=== PATIENT | male | born 1930 | race Caucasian/White ===

== ENCOUNTER 2016-09-05 09:32 | Inpatient (IN) | payer MEDICARE ==
[2016-09-05] MEDS ORDERED: NS 0.9% 1000 ML* 2,000 ML IV ONE (10:12)
[2016-09-05 10:29] LABS: Hematocrit 40 % (42-52); Hemoglobin 13.1 g/dl (14.0-18.0); Mean Corpuscular HGB Conc 33 g/dl (31-36); Mean Corpuscular Hemoglobin 29 pg (27-31); Mean Corpuscular Volume 88 fL (80-94); Mean Platelet Volume 11 um3 (7.4-10.4); Red Blood Count 4.52 10^6/ul (4.0-5.4); Red Cell Distribution Width 14 % (10.5-15); White Blood Count 9.5 10^3/ul (3.5-10.8)
[2016-09-05 10:45] LABS: Albumin 3.7 g/dL (3.2-5.2); BUN/Creatinine Ratio 22.3 (8-20); Calcium 9.3 mg/dL (8.6-10.3); EGFR African American 62.5 (>60); EGFR Non-African American 48.6 (>60); Globulin 3.8 g/dL (2-4); Potassium 3.8 mmol/L (3.5-5.0); Total Protein 7.5 g/dL (6.4-8.9)
[2016-09-05 11:00] LABS: Troponin I 0.94 ng/mL (<0.04)
[2016-09-05 11:02] LABS: TSH (Thyroid Stimulating Horm) 2.12 mcIU/mL (0.34-5.60)
--- NOTE | 2016-09-05 11:10 | RAD ---
Indication: Fall, pain. Assess for hemorrhage/CVA. Comparison: March 23, 2015 Technique: Noncontrast CT vertex of skull through foramen magnum. Report: Moderately severe prominence of the cerebral sulci. Proportional enlargement of the ventricles. Patent basal cisterns. 3 cm region of encephalomalacia at the junction of the RIGHT parietal and occipital lobes without change is consistent with sequela of a previous infarct. Well-circumscribed 1 cm lacunar infarct involving the RIGHT basal ganglia including the RIGHT basal ganglia while new compared with the 2015 exam appears chronic. Smaller unchanged LEFT basal ganglia lacunar infarct. Decreased density in the periventricular and subcortical white matter while non-specific is most likely due to chronic microangiopathy. No romero matter white matter obscuration associated with mass effect evident. Negative for intra or extra-axial hemorrhage. Unremarkable orbital contents. 2.4 x 1.4 cm soft tissue density LEFT frontoparietal scalp lesion with resulting convexity of the skin with irregular contour new compared with the prior exam is most consistent with a scalp hematoma given history of falls. Negative for fracture or suspicious lesion of the calvarium or skull base. Clear visualized paranasal sinuses and mastoid air spaces. IMPRESSION: 1. No traumatic intracranial injury or other acute intracranial process evident. 2. LEFT scalp hematoma. 3. 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 Involutional change Stigmata of chronic small vessel ischemic disease.
--- NOTE | 2016-09-05 11:20 | RAD ---
Indication: Multiple falls Comparison: March 23, 2015 Technique: Sitting AP and lateral chest views. Report: Clear lungs and pleural spaces. Negative for pneumothorax. The heart, pulmonary vasculature, and mediastinal contours are unremarkable. Unremarkable osseous structures for age. IMPRESSION: No evidence for acute intrathoracic disease.
--- NOTE | 2016-09-05 11:46 | RAD ---
Indication: Lumbar sacral pain post fall. Comparison: January 22, 2015 CT. Technique: Noncontrast CT pelvis and lumbar sacral spine. Multiplanar reformation. Report: Mildly impacted fracture at the S3-S4 level of the sacrum. Negative for significant surrounding soft tissue hematoma. No additional fracture of the pelvis. Negative for pelvic joint diastases. 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 Negative for lumbar spine fracture or spondylolysis at any level. Normal vertebral alignment without spondylolisthesis at any level. Multilevel degenerative spondylosis and posterior element osteoarthritis. T12-L1: Unremarkable for age. L1-L2: Degenerative spondylosis and posterior element hypertrophic arthropathy results in mild alteration in the shape of the thecal sac and mild bilateral foraminal stenosis. L2-L3: Degenerative spondylosis and posterior element osteoarthritis results in mild alteration in the shape of the thecal sac and slight bilateral foraminal stenosis. L3-L4: Annular disc bulge and posterior element osteoarthritis results in mild alteration in the shape of the thecal sac and mild bilateral foraminal stenosis. L4-L5: Mild annular disc bulge and posterior element hypertrophic arthropathy results in mild alteration in the shape of the thecal sac and slight bilateral foraminal stenosis. L5-S1: Annular disc bulge results in mild impression on the ventral margin of the thecal sac. Degenerative spondylosis and facet joint osteoarthritis results in mild bilateral foraminal stenosis. Distended urinary bladder with diffuse mild wall thickening likely reflecting trabeculation. Symmetric seminal vesicles. Negative for lymphadenopathy, ascites, or suspicious finding of the visualized bowel loops. Small fat-containing umbilical hernia without inflammatory change. IMPRESSION: 1. Mildly impacted acute appearing fracture at the S3-S4 level. Negative for significant surrounding hematoma. 2. Negative for fracture of the lumbar spine. 3. Diffuse degenerative spondylosis and posterior element osteoarthritis as described.
[2016-09-05] MEDS ORDERED: Aspirin Low Dose CHEW TAB* 81 MG PO ONE (12:27)
--- NOTE | 2016-09-05 12:29 | ED ---
Reed Thao Matthew, scribed for Valente Stewart MD on 09/05/16 at 1003 . Adult Trauma - HPI Summary HPI Summary: A 85 y/o male presents to the ED after 3 falls in the past two days. The pain is rated 8/10 in severity. The patient states that he fell once yesterday and two times today. He states that his falls are a results of his loss of balance. Yesterday, the patient was doing dishes when he fell backwards onto his sacrum. This morning he fell while trying to use the restroom. Associated symptoms include head trauma, bilateral hip pain, ecchymosis, pedal edema, and back pain - only with ambulation. The patient denies LOC, decreased appetite, weakness, chest pain, SOB, headache, neck pain, and slurred speech. The patient's also c/ o of right knee and left elbow pain from dragging himself across the carpet. PMHx includes MT. Currently, the patient states that he's doing well.; however he has been occasionally seeing "stars" since falling. He takes aspirin daily. The patient has a Hx of prior falls. He's also had diarrhea a couple of weeks ago w/o vomiting, which has since resolved. The patient has a left sided mass on his forehead, which has been increasing in size per his hospice home care coordinator. - History of Current Complaint Chief Complaint: EDGeneral Stated Complaint: FALL,HEADLAC, HIP PAIN, Time Seen by Provider: 09/05/16 09:48 Hx Obtained From: Patient Mechanism of Injury: Fall Ambulatory at the Scene: No Loss of Consciousness: no loss of consciousness Onset/Duration: Started Hours Ago, Traumatic Onset of Pain: Immediate Onset Severity: Moderate Current Severity: Moderate Pain Intensity: 8 Pain Scale Used: 0-10 Numeric Location: Back - sacrum, Abdomen/Pelvis - bilateral hip pain Aggravating Factor(s): Movement, Weight Bearing, Ambulation Alleviating Factor(s): Nothing Associated Signs & Symptoms: Positive: Ecchymosis, Other: - pedal edema. Negative: SOB, Chest Pain, Cough, Abdominal Pain, Fever, Nausea/Vomiting, Loss of Consciousness, Numbness/Weakness, Painful Respirations - Additional Pertinent History Primary Care Physician: [id number] - Allergy/Home Medications Allergies/Adverse Reactions: Allergies Allergy/AdvReac Type Severity Reaction Status Date / Time No Known Allergies Allergy Verified 09/05/16 09:41 PMH/Surg Hx/FS Hx/Imm Hx Endocrine/Hematology History: Denies: Hx Diabetes Cardiovascular History: Reports: Hx Hypercholesterolemia, Hx Hypertension, Other Cardiovascular Problems/Disorders - Mitral valve insufficiency, corotid stenosis Denies: Hx Congestive Heart Failure, Hx Pacemaker/ICD Respiratory History: Denies: Hx Asthma History: Denies: Hx Dialysis, Hx Renal Disease Sensory History: Reports: Hx Contacts or Glasses Denies: Hx Hearing Aid Opthamlomology History: Reports: Hx Contacts or Glasses Psychiatric History: Denies: Hx Panic Disorder - Surgical History Surgery Procedure, Year, and Place: TONSILS CHILD Infectious Disease History: No Infectious Disease History: Denies: Traveled Outside the [place] in Last 30 Days - Family History Known Family History: Positive: Cardiac Disease Negative: Diabetes Family History: No FHx of CA - Social History Alcohol Use: None Substance Use Type: Reports: None Smoking Status (MU): Former Smoker Amount Used/How Often: daily Length of Time of Smoking/Using Tobacco: entire life Have You Smoked in the Last Year: Yes Review of Systems Constitutional: Negative Eyes: Negative ENT: Negative Negative: Sore Throat Cardiovascular: Negative Negative: Chest Pain Respiratory: Negative Negative: Shortness Of Breath, Cough Gastrointestinal: Negative Genitourinary: Negative Positive: Myalgia - bilateral hip, scarum Positive: Bruising - sacrum Neurological: Negative Negative: Headache, Weakness, Slurred Speech Psychological: Normal All Other Systems Reviewed And Are Negative: Yes Physical Exam - Summary Physical Exam Summary: The patient is well-nourished in no acute distress and in no acute pain. The patient has decreased skin turgor. HEENT: The head is normocephalic. The patient has swelling on the left side of his face along with a mass. The pupils are equal and reactive and EMOI. The conjunctivae are clear and without drainage. Nares are patent and without drainage. Mouth reveals dry mucous membranes and the throat is without erythema and exudate. The external ears are intact. The ear canals are patent and without drainage. The tympanic membranes are intact. Neck is supple with full range of motion and non-tender. There are no carotid bruits. There is no neck vein distension. No reproducible pain noted. Respiratory: Chest is non-tender. Lungs are clear to auscultation and breath sounds are symmetrical and equal. Cardiovascular: Hear is regular rate and rhythm. There is no murmur or rub auscultated. Pulses are symmetrical and equal. Abdomen: The abdomen is soft and non-tender. There are normal bowel sounds heard in all four quadrants and there is no organomegaly palpated. Musculoskeletal: The patient has right hip tenderness, pain over his sacrum and right pubis ischium. Extremities are non-tender with full range of motion. There is good capillary refill. There is no calf tenderness elicited. The patient has pitting edema of the LE. Neurological: Patient is alert and oriented to person, place and time. The patient has symmetrical motor strength in all four extremities. Cranial nerves are grossly intact. Deep tendon reflexes are symmetrical and equal in all four extremities. No facial droop noted. No motor weakness noted. Psychiatric: The patient has an appropriate affect and does not exhibit any anxiety or depression. Triage Information Reviewed: Yes Vital Signs On Initial Exam: Initial Vitals Temp Pulse Resp BP Pulse Ox 98.0 F 84 16 163/67 97 09/05/16 09:33 09/05/16 09:33 09/05/16 09:33 09/05/16 09:33 09/05/16 09:33 Vital Signs Reviewed: Yes Diagnostics - Vital Signs Vital Signs Temp Pulse Resp BP Pulse Ox 09/05/16 09:33 98.0 F 84 16 163/67 97 - Laboratory Lab Results: Lab Results 09/05/16 09/05/16 09/05/16 Range/Units 10:15 10:15 10:15 WBC 9.5 (3.5-10.8) 10^3/ul RBC 4.52 (4.0-5.4) 10^6/ul Hgb 13.1 L (14.0-18.0) g/dl Hct 40 L (42-52) % MCV 88 (80-94) fL MCH 29 (27-31) pg MCHC 33 (31-36) g/dl RDW 14 (10.5-15) % Plt Count 137 L (150-450) 10^3/ul MPV 11 H (7.4-10.4) um3 Neut % (Auto) 68.9 (38-83) % Lymph % (Auto) 20.0 L (25-47) % Meeker % (Auto) 7.6 (1-9) % Eos % (Auto) 1.9 (0-6) % Baso % (Auto) 1.6 (0-2) % Absolute Neuts (auto) 6.5 (1.5-7.7) 10^3/ul Absolute Lymphs (auto) 1.9 (1.0-4.8) 10^3/ul Absolute Monos (auto) 0.7 (0-0.8) 10^3/ul Absolute Eos (auto) 0.2 (0-0.6) 10^3/ul Absolute Basos (auto) 0.2 (0-0.2) 10^3/ul Absolute Nucleated RBC 0.01 10^3/ul Nucleated RBC % 0.1 INR (Anticoag Therapy) 1.06 (0.89-1.11) Sodium 134 (133-145) mmol/L Potassium 3.8 (3.5-5.0) mmol/L Chloride 102 (101-111) mmol/L Carbon Dioxide 23 (22-32) mmol/L Anion Gap 9 (2-11) mmol/L BUN 31 H (6-24) mg/dL Creatinine 1.39 H (0.67-1.17) mg/dL Est GFR ( Amer) 62.5 (>60) Est GFR (Non-Af Amer) 48.6 (>60) BUN/Creatinine Ratio 22.3 H (8-20) Glucose 112 H (70-100) mg/dL Lactic Acid (0.5-2.0) mmol/L Calcium 9.3 (8.6-10.3) mg/dL Magnesium 2.0 (1.9-2.7) mg/dL Total Bilirubin 2.00 H (0.2-1.0) mg/dL AST 29 (13-39) U/L ALT 11 (7-52) U/L Alkaline Phosphatase 71 (34-104) U/L Total Creatine Kinase 334 H (10-223) U/L Troponin I 0.94 H* (<0.04) ng/mL B-Natriuretic Peptide ( - 100) pg/mL Total Protein 7.5 (6.4-8.9) g/dL Albumin 3.7 (3.2-5.2) g/dL Globulin 3.8 (2-4) g/dL Albumin/Globulin Ratio 1.0 (1-3) TSH 2.12 (0.34-5.60) mcIU/mL 09/05/16 09/05/16 Range/Units 10:15 10:15 WBC (3.5-10.8) 10^3/ul RBC (4.0-5.4) 10^6/ul Hgb (14.0-18.0) g/dl Hct (42-52) % MCV (80-94) fL MCH (27-31) pg MCHC (31-36) g/dl RDW (10.5-15) % Plt Count (150-450) 10^3/ul MPV (7.4-10.4) um3 Neut % (Auto) (38-83) % Lymph % (Auto) (25-47) % Meeker % (Auto) (1-9) % Eos % (Auto) (0-6) % Baso % (Auto) (0-2) % Absolute Neuts (auto) (1.5-7.7) 10^3/ul Absolute Lymphs (auto) (1.0-4.8) 10^3/ul Absolute Monos (auto) (0-0.8) 10^3/ul Absolute Eos (auto) (0-0.6) 10^3/ul Absolute Basos (auto) (0-0.2) 10^3/ul Absolute Nucleated RBC 10^3/ul Nucleated RBC % INR (Anticoag Therapy) (0.89-1.11) Sodium (133-145) mmol/L Potassium (3.5-5.0) mmol/L Chloride (101-111) mmol/L Carbon Dioxide (22-32) mmol/L Anion Gap (2-11) mmol/L BUN (6-24) mg/dL Creatinine (0.67-1.17) mg/dL Est GFR ( Amer) (>60) Est GFR (Non-Af Amer) (>60) BUN/Creatinine Ratio (8-20) Glucose (70-100) mg/dL Lactic Acid 1.3 (0.5-2.0) mmol/L Calcium (8.6-10.3) mg/dL Magnesium (1.9-2.7) mg/dL Total Bilirubin (0.2-1.0) mg/dL AST (13-39) U/L ALT (7-52) U/L Alkaline Phosphatase (34-104) U/L Total Creatine Kinase (10-223) U/L Troponin I (<0.04) ng/mL B-Natriuretic Peptide 262 H ( - 100) pg/mL Total Protein (6.4-8.9) g/dL Albumin (3.2-5.2) g/dL Globulin (2-4) g/dL Albumin/Globulin Ratio (1-3) TSH (0.34-5.60) mcIU/mL Result Diagrams: 09/05/16 10:15 09/05/16 10:15 Lab Statement: Any lab studies that have been ordered have been reviewed, and results considered in the medical decision making process. - Radiology CXR Xray Interpretation: No Acute Changes - IMPRESSION: No evidence for acute intrathoracic disease. Radiology Interpretation Completed By: Radiologist - CT Brain CT CT Interpretation: No Acute Changes - IMPRESSION: 1. No traumatic intracranial injury or other acute intracranial process evident. 2. LEFT scalp hematoma. 3. 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 Involutional change Stigmata of chronic small vessel ischemic disease. CT Interpretation Completed By: Radiologist L-Spine CT CT Interpretation: Positive (See Comments) - IMPRESSION: 1. Mildly impacted acute appearing fracture at the S3-S4 level. Negative for significant surrounding hematoma. 2. Negative for fracture of the lumbar spine. 3. Diffuse degenerative spondylosis and posterior element osteoarthritis as described. CT Interpretation Completed By: Radiologist Pelvis CT CT Interpretation: Positive (See Comments) - IMPRESSION: 1. Mildly impacted acute appearing fracture at the S3-S4 level. Negative for significant surrounding hematoma. 2. Negative for fracture of the lumbar spine. 3. Diffuse degenerative spondylosis and posterior element osteoarthritis as described. CT Interpretation Completed By: Radiologist - EKG 09:44 Cardiac Rate: NL - 82 bpm EKG Rhythm: Sinus Rhythm EKG Interpretation: Old Inferior Wall Infarct; RBBB; No STEMI EKG Comparison: No Significant Change - 03/23/15 Re-Evaluation - Re-Evaluation First Eval Re-Evaluation Time: 11:24 Change: Unchanged Comment: Reviewed labs and imaging with the patient. Discussed the possibility of admission with the patient. Adult Trauma Course/Dx - Course Assessment/Plan: An 85 y/o male presents to the ED after 3 falls in the past two days. The falls have resulted from a loss of balance. Associated symptoms include head trauma, bilateral hip pain, ecchymosis, pedal edema, and back pain - only with ambulation. The patient denies LOC, decreased appetite, weakness, chest pain, SOB, headache, neck pain, and slurred speech. Labs show an elevated troponin of 0.94. EKG shows NSR at 82 bpm with an old inferior wall infract, and a RBBB. The inferior wall infarct was present on 03/23/15. CXR shows no active cardiopulmonary disease. CT Brain shows no acute intracranial process and a left scalp hematoma. CT L-Spine shows mildly impacted acute appearing fracture at the S3-S4 level. Pelvis CT shows mildly impacted acute appearing fracture at the S3-S4 level and diffuse degenerative spondylosis and posterior element osteoarthritis. Discussed the case with Dr. Iglesias will admit the patient into his services. - Diagnoses Differential Diagnosis/HQI/PQRI: Positive: Fracture, Other - cardiac dysrhythmia , myocardial infarct, cva, dehydration, uti, chf Provider Diagnoses: Sacral fracture, Elevated troponin, Renal insufficiency, Multiple falls - Physician Notifications Discussed Care Of Patient With: Dr. Iglesias (Hospitalist) at 11:37 -- Notified of patient's history and will admit the patient into his services. Discharge - Discharge Plan Condition: Stable Disposition: ADMITTED TO [facility] Referrals: Anival Barraza MD [Primary Care Provider] - The documentation as recorded by the Reed bridges Matthew accurately reflects the service I personally performed and the decisions made by , Valente Stewart MD.
[2016-09-05] MEDS ORDERED: amLODIPine TAB* 5 MG ONE (12:33)
[2016-09-05] MEDS: amLODIPine TAB* 5 MG PO SCH (12:37)
[2016-09-05] MEDS: Acetaminophen TAB* 325 MG PO PRN (13:03)
[2016-09-05] MEDS: Heparin VIAL(*) 5000 UNITS/ML VIAL (FIVE THOUSAND) SUBCUT SCH ×2 (15:35→22:35)
[2016-09-05] MEDS: Atorvastatin* 80 MG TAB PO SCH (17:09)
[2016-09-05] MEDS: Nicotine PATCH 21 MG/24 HR* PATCH TRANSDERM SCH (17:10)
--- NOTE | 2016-09-05 19:57 | HP ---
HISTORY AND PHYSICAL: DATE OF ADMISSION: 09/05/16 PRIMARY CARE PROVIDER: None. ATTENDING PHYSICIAN WHILE IN THE HOSPITAL: Benton gIlesias MD *(report dictated by Vin Jones NP) CHIEF COMPLAINT: Falls. HISTORY OF PRESENT ILLNESS: Mr. Munoz is an 85-year-old male patient, he has a history of coronary artery disease, CT, pancreatitis in the past, history of hypertension, but on no medications and a previous history of pneumonia. He comes in today stating that in the last couple of days he has had falls. The last fall was on . He had 2 falls today. He may have also fallen on Tuesday. He called his family today and his nephew who urged him to come to the hospital and actually brought him into the hospital. The patient states that he only takes aspirin and Advil as needed. He states that he fell around 7 :30 this morning. He really does not recall the fall. I asked him several times if he fainted or passed out, he says he does not think so. He does state that he did not have any chest pain prior to the fall or any shortness of breath. He says that he just fell down and denies tripping over anything. The patient states the falling was concerning and so he came into the hospital today. He states that he does not have any pain currently. His family states that to their knowledge, there has not been any reports of nausea, vomiting or diarrhea. The patient also denies having any fevers or any chills. The patient was evaluated in the ER and it was found that his troponin was elevated and the hospitalist service was asked to evaluate for admission. PAST MEDICAL HISTORY: Significant for: 1. CAD. 2. Previous pancreatitis. 3. Pneumonia. 4. Hypertension. PAST SURGICAL HISTORY: He has had a tonsillectomy. HOME MEDICATIONS: Include: 1. Aspirin 81 mg daily. 2. Naproxen 220 mg p.o. daily as needed. ALLERGIES: To medications include no known drug allergies. FAMILY HISTORY: His father had a heart attack. Mother's history reviewed and noncontributory. SOCIAL HISTORY: He is a former smoker. He does still chew tobacco. He does not drink alcohol, although he does have a history of alcoholism. His last drink was over 10 years ago. He lives alone. Surrogate decision maker is his nephew. REVIEW OF SYSTEMS: There is no documented fever. He denies having any significant weight change. No double vision. No ear discharge. There is no rhinorrhea. There is no sore throat. No thyroid enlargement. Denies having any chest pain. There is no orthopnea. There is no nocturnal dyspnea. There is no abdominal pain. There is no nausea. There is no vomiting. No dysuria. No frequency. There is no loss of consciousness and he reported to me no seizure activity. Review of 14 systems completed, all others were negative. PHYSICAL EXAMINATION GENERAL: At this time, Mr. Munoz is an 85-year-old male patient. He appears to be well nourished, well developed. He is sitting in the ER stretcher. VITAL SIGNS: Reveal blood pressure 163/67, pulse 84, respirations 16, O2 sat 97 %, temperature 98. HEENT: Head: Atraumatic, normocephalic with the exception he does have a mobile lesion to his left frontal scalp area that appears to be purple discoloration. It is not painful and there is no induration. He states he has had this there for about at least the last several years, otherwise atraumatic. Eyes: Sclerae anicteric and not pale. Throat: Oral mucosa appears to be moist. No oropharyngeal erythema. NECK: Supple. LUNGS: Clear to auscultation bilaterally. No wheezes, rales, or rhonchi. HEART: Sounds S1, S2. Regular rate and rhythm. No murmurs, rubs, or gallops. ABDOMEN: Soft, flat, nontender. Bowel sounds were present. EXTREMITIES: Pulses were 2+ throughout. He did have some edema bilaterally but it was nonpitting. He is able to move all 4 extremities with 5/5 strength. NEUROLOGIC: He is awake, he is alert, he is oriented x3. Tongue midline. Enrollment Manager were equal. He had no gross focal deficits. SKIN: Intact. LABORATORY DATA: His labs today revealed a WBC of 9.5, RBC of 4.52, hemoglobin 13.1, hematocrit 40, platelet count 137. INR was 1.06. Sodium 134 , potassium 3.8, chloride 102, bicarb 23, BUN 31, creatinine 1.39. His previous creatinine is right around 1.1. Glucose 112, lactic 1.3, calcium 9.3, total bili 2.0, mag 2.0, AST 29, ALT 11, alk phos 71, CK 334, troponin 0.94, albumin 3.7. He did have a chest x-ray obtained today, which revealed no evidence of acute intrathoracic disease. He had a lumbar spine CT, a pelvis CT as well, which showed impression: Mild impacted acute appearing fracture at S3-4 level, negative for significant surrounding hematoma, negative for fracture of the lumbar spine, diffuse degenerative spondylolisthesis and posterior element osteoarthritis as described. He had a brain CT as well, which showed no traumatic intracranial injury or other acute intracranial process, eminent left scalp hematoma, chronic right parietal- occipital infarct and bilateral basal ganglia lacunar infarct, involutional change, stigmata of chronic vessel disease. He had an EKG obtained today, which did show a right bundle branch block, no ST elevations or T-wave inversions. He had a PVC and he had Q-waves in 2, 3 and aVF, which he has had in the past. Old medical records were reviewed. ASSESSMENT AND PLAN: Mr. Munoz is an 85-year-old male patient who does not follow regularly with a physician, coming into the ER today with complaints of falls and on evaluation was found to have an elevated troponin. He will be admitted under inpatient status for: 1. Falls. Etiology is unclear. It certainly could be a cardiac arrhythmia such as bradycardia or tachycardia. My plan at this point is to go ahead and place him on telemetry, cycle troponins, get an echo and monitor and check orthostatic blood pressures. 2. Elevated troponin. Etiology is unclear. He is not having any chest pain or any dyspnea on exertion. I will trend these. I am going to put him on an aspirin. His blood pressure is in the 160s. I do not want to put him on a beta- denzel in case he has a bradyarrhythmia, so I am going to go ahead and put him on Norvasc, hopefully to get the blood pressure down because he is in the 160's and we will continue to follow him. Cardiology has been consulted. 3. Scalp lesion. At this point, I touched base with Dr. Rodriguez to get a biopsy of this. It has been a chronic issue, but again he does not follow up. I would like to make sure this is not any type of carcinoma. 4. History of coronary artery disease. Again, he will be on aspirin and statin. Holding beta-denzel until we know he has got a bradyarrhythmia. 5. History of pancreatitis. Not an active issue. 6. History of hypertension. Continue meds as prescribed. 7. DVT prophylaxis. He is a high risk and will be placed on heparin subcu. 8. Code status. He wished to be a DNR that is in the chart. 9. Fluid, electrolytes, nutrition: He can have a heart healthy diet. TIME SPENT: Time spent on this admission was 70 minutes, greater than half the time was spent [id number] with the patient obtaining my history and physical, and the other half time was spent going over the plan of care with patient and implementing plan of care. I did discuss the plan of care with my attending, Dr. Iglesias, he is in agreement. VIN JONES NP CC: Dr. Quintana; Dr. Rodriguez* [id number]/[facility] #: [id number]
[2016-09-05] MEDS: Nicotine Patch Removal NOTE FOLLOW UP SCH (22:51)
[2016-09-06] MEDS: Acetaminophen TAB* 325 MG PO PRN (02:40)
[2016-09-06] MEDS: Heparin VIAL(*) 5000 UNITS/ML VIAL (FIVE THOUSAND) SUBCUT SCH ×3 (05:42→21:00)
[2016-09-06 05:44] LABS: Hematocrit 36 % (42-52); Mean Corpuscular HGB Conc 33 g/dl (31-36); Mean Corpuscular Hemoglobin 29 pg (27-31); Mean Corpuscular Volume 89 fL (80-94); Mean Platelet Volume 11 um3 (7.4-10.4); Red Blood Count 4.08 10^6/ul (4.0-5.4); Red Cell Distribution Width 14 % (10.5-15); White Blood Count 8.6 10^3/ul (3.5-10.8)
[2016-09-06 06:11] LABS: BUN/Creatinine Ratio 21.1 (8-20); Calcium 8.5 mg/dL (8.6-10.3); EGFR African American 60.9 (>60); EGFR Non-African American 47.4 (>60); HDL Cholesterol 32.7 mg/dL; Potassium 3.4 mmol/L (3.5-5.0)
[2016-09-06] MEDS: Aspirin Low Dose CHEW TAB* 81 MG PO SCH (09:38)
[2016-09-06] MEDS: amLODIPine TAB* 5 MG PO SCH (09:38)
[2016-09-06] MEDS: Nicotine PATCH 21 MG/24 HR* PATCH TRANSDERM SCH (09:39)
--- NOTE | 2016-09-06 10:34 | ECHO ---
Patient: ANTWON BURGESS [facility] Rec#: [id number] : 1930 Date: 09/06/2016 Age: 85y Height: 172.7 cm / 68.0 in Weight: 86.2 kg / 190.0 lbs Sex: M BSA: 2 Room#: 447 Admit Date#: 09/05/2016 Type: Inpatient Referring: Vin Jones NP Reading: Deo Scott MD Fold Skiver: eIsha Erickson RN RDCS Fold Skiver: Ginette Vasquez CC: OBDULIA MAO MD Transthoracic Echocardiogram Indication: NSTEMI BP: 127/60 HR: 63 Rhythm: NSR with PVCs Findings History: CAD, HTN, former smoker, pancreatitis. Technical Comments: The study is technically limited due to the patient's smoking history. Completed at 0900. Left Ventricle: The left ventricular chamber size is mildly dilated. Septal wall hypertrophy is observed. Mild global hypokinesis of the left ventricle is observed. There is mildly decreased left ventricular systolic function. The estimated ejection fraction is 45-50%. Abnormal left ventricular diastolic filling is observed, consistent with impaired relaxation. Left Atrium: The left atrium is mildly dilated. Right Ventricle: The right ventricular cavity size is normal. The right ventricular global systolic function is normal. Right Atrium: The right atrium is mildly dilated. Aortic Valve: The aortic valve is trileaflet. The aortic valve leaflets are mildly thickened. There is aortic annular calcification. There is mild aortic regurgitation. There is no evidence of aortic stenosis. Mitral Valve: The mitral valve leaflets are mildly thickened. There is mild mitral regurgitation. There is no evidence of mitral stenosis. Tricuspid Valve: The tricuspid valve leaflets are normal. There is trace tricuspid regurgitation. Unable to estimate the right ventricular systolic pressure. There is no tricuspid stenosis. Pulmonic Valve: The pulmonic valve appears normal. There is a trace pulmonic regurgitation. There is no pulmonic stenosis. Pericardium: There is no significant pericardial effusion. A pericardial fat pad is visualized. Aorta: There is no dilatation of the ascending aorta. There is no dilatation of the aortic arch. There is no dilation of the aortic root. Pulmonary Artery: The main pulmonary artery appears normal. Venous: The inferior vena cava appears normal in size. There is a greater than 50% respiratory change in the inferior vena cava dimension. Conclusions Mild global hypokinesis of the left ventricle is observed. There is mildly decreased left ventricular systolic function. The estimated ejection fraction is 45-50%. Abnormal left ventricular diastolic filling is observed, consistent with impaired relaxation. The right ventricular global systolic function is normal. The aortic valve leaflets are mildly thickened. There is mild aortic regurgitation. There is no evidence of aortic stenosis. There is mild mitral regurgitation. There is trace tricuspid regurgitation. Unable to estimate the right ventricular systolic pressure. There is no significant pericardial effusion. Measurements Name Value Normal Range RVIDd (AP) 2D 3.2 cm (0.9 - 2.6) RVDdMajor (2D) 3.6 cm (2.2 - 4.4) RAd ISD 4CH 5.1 cm (3.4 - 4.9) RA (A4C)W 3.3 cm (2.9 - 4.6) IVSd (2D) 1.4 cm (0.6 - 1) LVPWd (2D) 0.9 cm (0.6 - 1) LVIDd (2D) 5.8 cm (3.6 - 5.4) LVIDs (2D) 4.8 cm - LV FS (2D) 17.3 % (25 - 45) Aortic Annulus 2.4 cm (1.4 - 2.6) Ao root diameter (2D) 3.4 cm (2.1 - 3.5) Ascending Ao 3.3 cm (2.1 - 3.4) Aortic arch 2.9 cm (1.8 - 3.4) LA dimension (AP) 2D 3.9 cm (2.3 - 3.8) LAd ISD 4CH 5.9 cm (2.9 - 5.3) LA ISD 4CH W 3.9 cm (2.5 - 4.5) Name Value Normal Range LA ESV SP 4CH (A/L) 57 ml - LA ESV SP 2CH (A/L) 75 ml - LA ESV BP (A/L) 66 ml - LA ESV BP (A/L) index 33 ml/m2 - LA ESV SP 4CH (MOD) 52 ml - LA ESV SP 2CH (MOD) 72 ml - Name Value Normal Range MV E-wave Vmax 0.61 m/sec - MV deceleration time 313 msec - MV A-wave Vmax 0.81 m/sec - MV E:A ratio 0.76 ratio - LV septal e' Vmax 0.04 m/sec - LV lateral e' Vmax 0.05 m/sec - LV E:e' septal ratio 15.3 ratio - LV E:e' lateral ratio 12.2 ratio - Name Value Normal Range AV Vmax 1.2 m/sec - AV VTI 26.6 cm - AV peak gradient 6.2 mmHg - AV mean gradient 3.7 mmHg - LVOT Vmax 0.95 m/sec - LVOT VTI 22.5 cm - LVOT peak gradient 3.6 mmHg - LVOT mean gradient 2.3 mmHg - AR PHT 865 msec - AR peak gradient 58.8 mmHg - LEE Vmax 0.8 m/sec - Name Value Normal Range IVC diameter 2.1 cm - Name Value Normal Range PV Vmax 1 m/sec - PV peak gradient 3.7 mmHg -
--- NOTE | 2016-09-06 14:23 | CONS ---
INTERVENTIONAL CARDIOLOGY CONSULT NOTE: DATE OF CONSULT: 09/06/16 PRIMARY: Unknown. HISTORY OF PRESENT ILLNESS: An 85-year-old male admitted with recurring falls. Interventional Cardi ology was consulted because of abnormal troponin. The patient is at best a fair historian. I reviewed [employer]. 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 He does not follow with the customer assistance associate, he denies any chest pain, exertional dyspnea, he art failure, PND, edema, palpitations. Four days ago, he fell while he was washing dishes, he does not know the reason for falling, but he is quite clear that he did not lose consciousness, he did no t become dizzy, he remembers striking the floor. He then spent 5 hours lying on the floor before he could make a telephone call. On Tuesday, he fell again but was able to reach help quickly. Hafsa berrios EKG here showed only the old inferior infarct with new right bundle-branch block. His troponins went from 0.94 to 1.09 to 0.79 in the setting of renal insufficiency with a creatinine of 1.42 with a GFR of 47, baseline GFR of 1 to 1.22. EKG has not evolved. He has not had any chest pain or dizz iness here. He is a fairly vague historian, it is frankly difficult to get a clear history from him about his functional status. PAST MEDICAL HISTORY: According to [employer], previous MD, unknown previous workup except for noninv asive stress imaging; history of pancreatitis; hypertension; history of pneumonia. According to the record, previous bilateral carotid endarterectomies. PREHOSPITAL MEDICATIONS: None. ALLERGIES: None to medications. FAMILY HISTORY: Positive for heart disease. SOCIAL HISTORY: He is a nonsmoker. He lives alone. REVIEW OF SYSTEMS: Respiratory: He denies cough or hemoptysis or dyspnea. Cardiac: He denies any chest pain or anginal-type symptom. Circulatory: No claudication. HOG WORKER: He denies any history of TIA or CVA. Remainder negative. PHYSICAL EXAM: He is an elderly male. He is somewhat disheveled, able to give some history. Blood pressure 147/49, heart rate in the 60s to 70s, he is afebrile. Lungs: He has a few rales at the [facility] base, none on the left. No wheezing. JVP is not visible. Carotids are palpable without bruits . HEENT: Unremarkable without xanthelasma, scleral injection, or jaundice. EOMs are normal. Card iac Exam: I cannot feel the RV or apex, heart sounds are normal, he has no audible gallop or murmur . The abdomen is soft, nontender without bruit. Radial pulses are palpable. Pedals are faintly pa lpable as he has trace edema bilaterally. 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 Hemoglobin 13.1, platelet count is 137,000. Potassium 3.4, creatinine 1.42. Troponins as above. Cholesterol 128, LDL 81, triglycerides 72, HDL 32.7. BNP is elevated at 262. Chest x-ray by my review and by report unremarkable. Echo by report shows global LV systolic dysfunction with EF of 45% to 50%, RV systolic pressure not measurable. IMPRESSION: Falls. His history does not suggest syncope. The mechanism of his recurring falling i s unclear to me. He was on the floor for over 5 hours with the first episode, which certainly would potentially account for his elevated troponins. He also may have an element of heart failure given the slightly elevated BNP and rales at the bases. He has low normal to mildly reduced LV systolic function, may have an element of diastolic dysfunction as well. He overall appears quite frail, the re is no evidence of ACS without chest pain, EKG changes. Presently, I do not recommend stress test ing or any other cardiac testing. I would treat him empirically for known coronary artery disease w ith secondary risk factor modification including aspirin, a statin. He may not tolerate a beta-bloc ker because of his apparent asymptomatic sinus bradycardia with a heart rate of 39 at 1:30 this morn ing while he was presumably sleeping. I agree with continued telemetry to monitor his rhythm. If h e has documented symptomatic bradycardia outside of sleep, please let us know. Thanks for the consultation. Please call if I can be of any further help. [id number]/[facility] #: [id number]
[2016-09-06] MEDS: Atorvastatin* 80 MG TAB PO SCH (15:19)
[2016-09-06] MEDS ORDERED: Potassium Chlor TAB* 20 MEQ TAB.ER PO ONE (18:28)
--- NOTE | 2016-09-06 18:40 | PN ---
Subjective Date of Service: 09/06/16 Interval History: Pt has no complaints. stated that he usually falls and does not loose consciousness. Has no prodromal symptoms. It usually happens when he is standing. Has h/o multiple falls at home. Objective Active Medications: Acetaminophen (Tylenol Tab*) 650 mg PO Q4H PRN PRN Reason: FEVER/PAIN Last Admin: 09/06/16 02:40 Dose: 650 mg Amlodipine Besylate (Norvasc Tab*) 5 mg PO DAILY [facility] Last Admin: 09/06/16 09:38 Dose: 5 mg Aspirin (Aspirin Low Dose Tab*) 81 mg PO DAILY [facility] Last Admin: 09/06/16 09:38 Dose: 81 mg Atorvastatin Calcium (Lipitor*) 80 mg PO 1700 [facility] Last Admin: 09/06/16 15:19 Dose: 80 mg Heparin Sodium (Porcine) (Heparin Vial(*)) 5,000 units SUBCUT Q8HR [facility] Last Admin: 09/06/16 15:18 Dose: 5,000 units Nicotine (Nicotine Patch 21 Mg/24 Hr*) 1 patch TRANSDERM Q24HR [facility] Last Admin: 09/06/16 09:39 Dose: 1 patch Pharmacy Profile Note (Nicotine Patch Removal Note*) 1 note FOLLOW UP 2100 [facility] Last Admin: 09/05/16 22:51 Dose: 1 note Potassium Chloride (Klor Con Er Tab*) 40 meq PO ONCE ONE Stop: 09/06/16 18:29 Vital Signs 09/05/16 09/05/16 09/05/16 19:29 20:00 23:58 Temperature 97.9 F 99.1 F Pulse Rate 63 76 Respiratory 18 18 16 Rate Blood Pressure 138/48 127/60 (mmHg) O2 Sat by Pulse 97 94 Oximetry 09/06/16 09/06/16 09/06/16 03:56 07:23 08:00 Temperature 98.4 F 98.0 F Pulse Rate 56 66 Respiratory 16 16 16 Rate Blood Pressure 129/49 147/49 (mmHg) O2 Sat by Pulse 92 94 Oximetry 09/06/16 09/06/16 09/06/16 09:12 11:16 15:38 Temperature 98.2 F 97.6 F Pulse Rate 64 67 Respiratory 16 14 Rate Blood Pressure 137/53 149/58 (mmHg) O2 Sat by Pulse 95 94 95 Oximetry 09/06/16 16:06 Temperature Pulse Rate Respiratory Rate Blood Pressure (mmHg) O2 Sat by Pulse 97 Oximetry Oxygen Devices in Use Now: None Appearance: 85 yo m in nAd, aAOx3, very poor historian Eyes: No Scleral Icterus, PERRLA Ears/Nose/Mouth/Throat: NL Teeth, Lips, Gums, Mucous Membranes Moist Neck: NL Appearance and Movements; NL JVP, Trachea Midline Respiratory: Symmetrical Chest Expansion and Respiratory Effort, Clear to Auscultation Cardiovascular: NL Sounds; No Murmurs; No JVD, RRR Abdominal: NL Sounds; No Tenderness; No Distention, No Hepatosplenomegaly Lymphatic: No Cervical Adenopathy Extremities: No Clubbing, Cyanosis, - - +1 pitting edema b/l Skin: No Nodules or Sclerosis, - - left forehead lesion, fungating at 3 cm in diam , protruding at 1 cm Neurological: Alert and Oriented x 3, NL Muscle Strength and Tone, - - pooor tangential historian Result Diagrams: 09/06/16 05:14 09/06/16 05:14 Additional Lab and Data: Lab Results 09/05/16 09/05/16 09/05/16 Range/Units 10:15 10:15 10:15 WBC 9.5 (3.5-10.8) 10^3/ul RBC 4.52 (4.0-5.4) 10^6/ul Hgb 13.1 L (14.0-18.0) g/dl Hct 40 L (42-52) % MCV 88 (80-94) fL MCH 29 (27-31) pg MCHC 33 (31-36) g/dl RDW 14 (10.5-15) % Plt Count 137 L (150-450) 10^3/ul MPV 11 H (7.4-10.4) um3 Neut % (Auto) 68.9 (38-83) % Lymph % (Auto) 20.0 L (25-47) % [place] % (Auto) 7.6 (1-9) % Eos % (Auto) 1.9 (0-6) % Baso % (Auto) 1.6 (0-2) % Absolute Neuts (auto) 6.5 (1.5-7.7) 10^3/ul Absolute Lymphs (auto) 1.9 (1.0-4.8) 10^3/ul Absolute Monos (auto) 0.7 (0-0.8) 10^3/ul Absolute Eos (auto) 0.2 (0-0.6) 10^3/ul Absolute Basos (auto) 0.2 (0-0.2) 10^3/ul Absolute Nucleated RBC 0.01 10^3/ul Nucleated RBC % 0.1 INR (Anticoag Therapy) 1.06 (0.89-1.11) Sodium 134 (133-145) mmol/L Potassium 3.8 (3.5-5.0) mmol/L Chloride 102 (101-111) mmol/L Carbon Dioxide 23 (22-32) mmol/L Anion Gap 9 (2-11) mmol/L BUN 31 H (6-24) mg/dL Creatinine 1.39 H (0.67-1.17) mg/dL Est GFR ( Amer) 62.5 (>60) Est GFR (Non-Af Amer) 48.6 (>60) BUN/Creatinine Ratio 22.3 H (8-20) Glucose 112 H (70-100) mg/dL Lactic Acid (0.5-2.0) mmol/L Calcium 9.3 (8.6-10.3) mg/dL Magnesium 2.0 (1.9-2.7) mg/dL Total Bilirubin 2.00 H (0.2-1.0) mg/dL AST 29 (13-39) U/L ALT 11 (7-52) U/L Alkaline Phosphatase 71 (34-104) U/L Total Creatine Kinase 334 H (10-223) U/L Troponin I 0.94 H* (<0.04) ng/mL B-Natriuretic Peptide ( - 100) pg/mL Total Protein 7.5 (6.4-8.9) g/dL Albumin 3.7 (3.2-5.2) g/dL Globulin 3.8 (2-4) g/dL Albumin/Globulin Ratio 1.0 (1-3) TSH 2.12 (0.34-5.60) mcIU/mL 09/05/16 09/05/16 Range/Units 10:15 10:15 WBC (3.5-10.8) 10^3/ul RBC (4.0-5.4) 10^6/ul Hgb (14.0-18.0) g/dl Hct (42-52) % MCV (80-94) fL MCH (27-31) pg MCHC (31-36) g/dl RDW (10.5-15) % Plt Count (150-450) 10^3/ul MPV (7.4-10.4) um3 Neut % (Auto) (38-83) % Lymph % (Auto) (25-47) % [place] % (Auto) (1-9) % Eos % (Auto) (0-6) % Baso % (Auto) (0-2) % Absolute Neuts (auto) (1.5-7.7) 10^3/ul Absolute Lymphs (auto) (1.0-4.8) 10^3/ul Absolute Monos (auto) (0-0.8) 10^3/ul Absolute Eos (auto) (0-0.6) 10^3/ul Absolute Basos (auto) (0-0.2) 10^3/ul Absolute Nucleated RBC 10^3/ul Nucleated RBC % INR (Anticoag Therapy) (0.89-1.11) Sodium (133-145) mmol/L Potassium (3.5-5.0) mmol/L Chloride (101-111) mmol/L Carbon Dioxide (22-32) mmol/L Anion Gap (2-11) mmol/L BUN (6-24) mg/dL Creatinine (0.67-1.17) mg/dL Est GFR ( Amer) (>60) Est GFR (Non-Af Amer) (>60) BUN/Creatinine Ratio (8-20) Glucose (70-100) mg/dL Lactic Acid 1.3 (0.5-2.0) mmol/L Calcium (8.6-10.3) mg/dL Magnesium (1.9-2.7) mg/dL Total Bilirubin (0.2-1.0) mg/dL AST (13-39) U/L ALT (7-52) U/L Alkaline Phosphatase (34-104) U/L Total Creatine Kinase (10-223) U/L Troponin I (<0.04) ng/mL B-Natriuretic Peptide 262 H ( - 100) pg/mL Total Protein (6.4-8.9) g/dL Albumin (3.2-5.2) g/dL Globulin (2-4) g/dL Albumin/Globulin Ratio (1-3) TSH (0.34-5.60) mcIU/mL Assess/Plan/Problems-Billing Assessment: 85 yo M with h/o ETOH abuse( 6 years ago), HTN, pancreatitis, had not seen a doctor x 2 years, h/o falls, s/p fall, no reported LOC and elevated troponin, no CP - Patient Problems (1) Elevated troponin Comment: suspect demand ischemia. EKG shows no ischemic changes appreciate Dr. Oneal's consult ASA and Lipitor started. Cont telem to monitor for arrythmia as a possible cause of syncope. Pt continues to be in sinus rythm and sinus karena with PVC's and occasional missed beat. Echo shows EF 45%-50% (2) Elevated serum creatinine Comment: UA pending Unchanged despite IVF. will chesk post void residual (3) Closed zone 2 fracture of sacrum Comment: suspect compression fx. will d/x neurosurgery in aM. (4) Skin lesion Comment: pathology pending (5) HTN (hypertension) Comment: cont Norvasc. No BB due to bradycardia (6) DVT prophylaxis Comment: Heparin SQ
[2016-09-06] MEDS: Nicotine Patch Removal NOTE FOLLOW UP SCH (21:00)
--- NOTE | 2016-09-06 21:50 | PRO ---
DATE OF PROCEDURE: 09/06/16 - ROOM #447 PROCEDURE PERFORMED BY: Ángel Rodriguez MD PROCEDURE: INDICATIONS AND HISTORY: The patient is an 85-year-old male who presented to the hospital after a couple of falls. He was admitted by the medical service for evaluation of his falling and he is noted to have a large ulcerated lesion of the left forehead. The patient states that that has been there back since he doctored with Dr. Melton, so that must go back at least 15 years. He never had it biopsied. It has not been painful for him. On examination, there is approximately 3 x 4 cm irregular mass of the left forehead above the left eyebrow and this has raised above the surface, ulcerated , and part scabbed and part with raised and narrowed edges suggestive of a basal cell carcinoma. I discussed this with him and with the family member and I think this is highly likely to be a malignancy and recommend biopsy. He is understanding and agreeable to the approach. DESCRIPTION OF PROCEDURE: Therefore, the area of the left forehead was prepped with alcohol, 1% plain lidocaine is placed and a biopsy is taken off the edge of the lesion. This is approximately 0.1 x 0.4 x 0.5 cm and sent in formalin for pathologic evaluation. Gauze bandage is placed. He tolerated this well. [id number]/[facility] #: [id number] [facility]
[2016-09-07] MEDS: Heparin VIAL(*) 5000 UNITS/ML VIAL (FIVE THOUSAND) SUBCUT SCH ×3 (06:14→21:02)
[2016-09-07 06:15] LABS: BUN/Creatinine Ratio 21.5 (8-20); Calcium 8.5 mg/dL (8.6-10.3); EGFR African American 73.3 (>60); Potassium 3.7 mmol/L (3.5-5.0)
[2016-09-07] MEDS: Nicotine PATCH 21 MG/24 HR* PATCH TRANSDERM SCH (08:43)
[2016-09-07] MEDS: amLODIPine TAB* 5 MG PO SCH (08:43)
[2016-09-07] MEDS: Aspirin Low Dose CHEW TAB* 81 MG PO SCH (08:43)
--- NOTE | 2016-09-07 09:32 | PN ---
Subjective Date of Service: 09/07/16 Interval History: pt was seen ambulating with a roller walker. Small cautious steps. Steady. No new complaints. Telem shows sinus to sinus karena. 4 beat of narrow complex tachy this AM Objective Active Medications: Acetaminophen (Tylenol Tab*) 650 mg PO Q4H PRN PRN Reason: FEVER/PAIN Last Admin: 09/06/16 02:40 Dose: 650 mg Amlodipine Besylate (Norvasc Tab*) 5 mg PO DAILY [facility] Last Admin: 09/07/16 08:43 Dose: 5 mg Aspirin (Aspirin Low Dose Tab*) 81 mg PO DAILY [facility] Last Admin: 09/07/16 08:43 Dose: 81 mg Atorvastatin Calcium (Lipitor*) 80 mg PO 1700 [facility] Last Admin: 09/06/16 15:19 Dose: 80 mg Heparin Sodium (Porcine) (Heparin Vial(*)) 5,000 units SUBCUT Q8HR [facility] Last Admin: 09/07/16 06:14 Dose: 5,000 units Nicotine (Nicotine Patch 21 Mg/24 Hr*) 1 patch TRANSDERM Q24HR [facility] Last Admin: 09/07/16 08:43 Dose: 1 patch Pharmacy Profile Note (Nicotine Patch Removal Note*) 1 note FOLLOW UP 2100 [facility] Last Admin: 09/06/16 21:00 Dose: 1 note Vital Signs 09/06/16 09/06/16 09/06/16 11:16 15:38 16:06 Temperature 98.2 F 97.6 F Pulse Rate 64 67 Respiratory 16 14 Rate Blood Pressure 137/53 149/58 (mmHg) O2 Sat by Pulse 94 95 97 Oximetry 09/06/16 09/06/16 09/06/16 20:00 20:16 23:58 Temperature 98.3 F 97.5 F Pulse Rate 66 72 Respiratory 16 14 16 Rate Blood Pressure 154/64 163/66 (mmHg) O2 Sat by Pulse 97 93 Oximetry 09/07/16 09/07/16 02:29 03:47 Temperature 96.8 F Pulse Rate 65 Respiratory 16 Rate Blood Pressure 169/63 (mmHg) O2 Sat by Pulse 94 100 Oximetry Oxygen Devices in Use Now: None Appearance: 85 yo M in nAD, aAOx3 Eyes: No Scleral Icterus, PERRLA Ears/Nose/Mouth/Throat: NL Teeth, Lips, Gums, Mucous Membranes Moist Neck: NL Appearance and Movements; NL JVP, Trachea Midline Respiratory: Symmetrical Chest Expansion and Respiratory Effort, Clear to Auscultation Cardiovascular: NL Sounds; No Murmurs; No JVD, RRR Abdominal: NL Sounds; No Tenderness; No Distention, No Hepatosplenomegaly Lymphatic: No Cervical Adenopathy Extremities: No Clubbing, Cyanosis, - - +1 pitting edema b/l Skin: No Nodules or Sclerosis, - - Left forehead protruding mass at 3 x 1 cm, s/ p bx.Small ecchymotic area on sacrum Neurological: Alert and Oriented x 3, NL Muscle Strength and Tone Result Diagrams: 09/06/16 05:14 09/07/16 05:23 Additional Lab and Data: Lab Results 09/05/16 09/05/16 09/05/16 Range/Units 10:15 10:15 10:15 WBC 9.5 (3.5-10.8) 10^3/ul RBC 4.52 (4.0-5.4) 10^6/ul Hgb 13.1 L (14.0-18.0) g/dl Hct 40 L (42-52) % MCV 88 (80-94) fL MCH 29 (27-31) pg MCHC 33 (31-36) g/dl RDW 14 (10.5-15) % Plt Count 137 L (150-450) 10^3/ul MPV 11 H (7.4-10.4) um3 Neut % (Auto) 68.9 (38-83) % Lymph % (Auto) 20.0 L (25-47) % [facility] % (Auto) 7.6 (1-9) % Eos % (Auto) 1.9 (0-6) % Baso % (Auto) 1.6 (0-2) % Absolute Neuts (auto) 6.5 (1.5-7.7) 10^3/ul Absolute Lymphs (auto) 1.9 (1.0-4.8) 10^3/ul Absolute Monos (auto) 0.7 (0-0.8) 10^3/ul Absolute Eos (auto) 0.2 (0-0.6) 10^3/ul Absolute Basos (auto) 0.2 (0-0.2) 10^3/ul Absolute Nucleated RBC 0.01 10^3/ul Nucleated RBC % 0.1 INR (Anticoag Therapy) 1.06 (0.89-1.11) Sodium 134 (133-145) mmol/L Potassium 3.8 (3.5-5.0) mmol/L Chloride 102 (101-111) mmol/L Carbon Dioxide 23 (22-32) mmol/L Anion Gap 9 (2-11) mmol/L BUN 31 H (6-24) mg/dL Creatinine 1.39 H (0.67-1.17) mg/dL Est GFR ( Amer) 62.5 (>60) Est GFR (Non-Af Amer) 48.6 (>60) BUN/Creatinine Ratio 22.3 H (8-20) Glucose 112 H (70-100) mg/dL Lactic Acid (0.5-2.0) mmol/L Calcium 9.3 (8.6-10.3) mg/dL Magnesium 2.0 (1.9-2.7) mg/dL Total Bilirubin 2.00 H (0.2-1.0) mg/dL AST 29 (13-39) U/L ALT 11 (7-52) U/L Alkaline Phosphatase 71 (34-104) U/L Total Creatine Kinase 334 H (10-223) U/L Troponin I 0.94 H* (<0.04) ng/mL B-Natriuretic Peptide ( - 100) pg/mL Total Protein 7.5 (6.4-8.9) g/dL Albumin 3.7 (3.2-5.2) g/dL Globulin 3.8 (2-4) g/dL Albumin/Globulin Ratio 1.0 (1-3) TSH 2.12 (0.34-5.60) mcIU/mL 09/05/16 09/05/16 Range/Units 10:15 10:15 WBC (3.5-10.8) 10^3/ul RBC (4.0-5.4) 10^6/ul Hgb (14.0-18.0) g/dl Hct (42-52) % MCV (80-94) fL MCH (27-31) pg MCHC (31-36) g/dl RDW (10.5-15) % Plt Count (150-450) 10^3/ul MPV (7.4-10.4) um3 Neut % (Auto) (38-83) % Lymph % (Auto) (25-47) % [facility] % (Auto) (1-9) % Eos % (Auto) (0-6) % Baso % (Auto) (0-2) % Absolute Neuts (auto) (1.5-7.7) 10^3/ul Absolute Lymphs (auto) (1.0-4.8) 10^3/ul Absolute Monos (auto) (0-0.8) 10^3/ul Absolute Eos (auto) (0-0.6) 10^3/ul Absolute Basos (auto) (0-0.2) 10^3/ul Absolute Nucleated RBC 10^3/ul Nucleated RBC % INR (Anticoag Therapy) (0.89-1.11) Sodium (133-145) mmol/L Potassium (3.5-5.0) mmol/L Chloride (101-111) mmol/L Carbon Dioxide (22-32) mmol/L Anion Gap (2-11) mmol/L BUN (6-24) mg/dL Creatinine (0.67-1.17) mg/dL Est GFR ( Amer) (>60) Est GFR (Non-Af Amer) (>60) BUN/Creatinine Ratio (8-20) Glucose (70-100) mg/dL Lactic Acid 1.3 (0.5-2.0) mmol/L Calcium (8.6-10.3) mg/dL Magnesium (1.9-2.7) mg/dL Total Bilirubin (0.2-1.0) mg/dL AST (13-39) U/L ALT (7-52) U/L Alkaline Phosphatase (34-104) U/L Total Creatine Kinase (10-223) U/L Troponin I (<0.04) ng/mL B-Natriuretic Peptide 262 H ( - 100) pg/mL Total Protein (6.4-8.9) g/dL Albumin (3.2-5.2) g/dL Globulin (2-4) g/dL Albumin/Globulin Ratio (1-3) TSH (0.34-5.60) mcIU/mL Assess/Plan/Problems-Billing Assessment: 85 yo M with h/o ETOH abuse( 6 years ago), HTN, pancreatitis, had not seen a doctor x 2 years, h/o falls, s/p fall, no reported LOC and elevated troponin, no CP - Patient Problems (1) Elevated troponin Comment: suspect demand ischemia. EKG shows no ischemic changes appreciate Dr. Oneal's consult ASA and Lipitor started. Cont telem to monitor for arrythmia as a possible cause of syncope. Pt continues to be in sinus rythm and sinus karena with PVC's and occasional missed beat. Echo shows EF 45%-50% (2) Elevated serum creatinine Comment: UA pending improving post void residual 199 ml on 09/06/16, but good urine output through the night (3) Skin lesion Comment: pathology pending (4) HTN (hypertension) Comment: cont Norvasc. No BB due to bradycardia (5) Sacral fracture, closed Comment: CT L spine shows S3-S4 impacted fx. will d/w neurosurgery today. Pt is neurologically intact (6) DVT prophylaxis Comment: Heparin SQ Status and Disposition: medically could be discharged to [facility] today
[2016-09-07 10:58] LABS: Urine Bacteria Absent (Absent); Urine Bilirubin Negative (Negative); Urine Glucose Negative (Negative); Urine Nitrite Negative (Negative)
[2016-09-07] MEDS: Atorvastatin* 80 MG TAB PO SCH (15:52)
[2016-09-07] MEDS: Nicotine Patch Removal NOTE FOLLOW UP SCH (21:02)
[2016-09-08] MEDS: Heparin VIAL(*) 5000 UNITS/ML VIAL (FIVE THOUSAND) SUBCUT SCH (05:16)
[2016-09-08] MEDS: Nicotine PATCH 21 MG/24 HR* PATCH TRANSDERM SCH (07:41)
[2016-09-08] MEDS: amLODIPine TAB* 5 MG PO SCH (07:44)
[2016-09-08] MEDS: Aspirin Low Dose CHEW TAB* 81 MG PO SCH (07:45)
--- NOTE | 2016-09-08 08:07 | DS ---
DISCHARGE SUMMARY: DATE OF ADMISSION: 09/05/16 DATE OF ANTICIPATED DISCHARGE: 09/08/16, in the morning. DATE OF DICTATION: 09/07/16 PRIMARY CARE PROVIDER: Dr. Ainval Barraza. DISCHARGE DIAGNOSES: 1. Falls. 2. Sacral bone fracture between S3 and S4, mildly impacted, not dislocated, due to above falls. 3. Acute kidney injury, most likely due to dehydration. 4. Elevated troponins, suspect demand ischemia. 5. Left forehead scalp lesion, status post biopsy during the hospital stay. PAST MEDICAL HISTORY: 1. Coronary artery disease. 2. History of pancreatitis. 3. Pneumonia. 4. Hypertension. MEDICATIONS AT DISCHARGE: Include: 1. Aspirin 81 mg daily. 2. Lipitor 80 mg daily. 3. Amlodipine 5 mg daily. 4. Nicotine patch 21 mg every 24 hours. 5. Acetaminophen on a p.r.n. basis. LABORATORY DATA AND STUDIES PERFORMED DURING THE HOSPITAL STAY: Included: CBC on 09/06/16 show a white blood cell count of 8.6, hemoglobin 12.0, hematocrit 36 , and platelets 122. On 09/07/16 - sodium 137, potassium 3.7, chloride 105, carbon dioxide 24, BUN 26, and creatinine 1.2. The patient's creatinine maximum was 1.42 on 09/06/16; in the past his baseline was 1.1. The patient's troponin at the maximum was 1.09. The patient's lipid profile showed triglycerides 72, cholesterol 128, LDL 81, and HDL 32. TSH was 2.12. Pathology obtained by Dr. Rodriguez from left forehead lesion is pending at the time of dictation. Lumbar spine CT obtained on 09/05/16. Impression: "Mildly impacted acute fracture at the S3, S4 level. Negative for significant surrounding hematoma. Negative for fracture of the lumbar spine. Diffuse degenerative spondylosis , osteoarthritis as described." Brain CT. Impression: "No traumatic intracranial injury or other acute intracranial process evident. Left scalp hematoma. 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 Involutional change stigmata of chronic small vessel ischemic changes." Transthoracic echocardiogram obtained on 09/05/16 showed mild global hypokinesis with EF of 45% to 50% with impaired relaxation. CONSULTATIONS DURING THE HOSPITAL STAY: Include Dr. Oneal from Cardiology and Dr. Rodriguez from general surgery. 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 On the day of admission, the patient fell a couple of times. One of those times, the patient stated that he spent 5 hours on the floor. When he presented to the emergency department, he complained of no chest pain or shortness of breath. He complained of generalized weakness and falls. He was diagnosed with sacral bone fracture that was not displaced. Neurologically he was intact. He had elevated troponin, but otherwise was asymptomatic. His EKG shows mostly sinus bradycardia with occasional PACs and PVCs. Right bundle branch block was also evident. The patient had a cardiology consultation. Aspirin and statin was recommended . Beta denzel also was recommended if possible; but, unfortunately, the patient had been rather bradycardic throughout his hospital stay. Dr. Oneal did not recommend any further stress testing or any other cardiac testing at this point. The patient underwent physical therapy evaluation and was very slow and steady with a walker. He was deemed to be a good candidate for rehabilitation. He also suffered from acute kidney injury, most likely due to dehydration and falls. After rehydration, his creatinine started to improve and was almost back to baseline at discharge. The patient is planned to be discharged to [facility] on . For physical exam at the time of this dictation, please see daily progress notes. Please also note that Dr. Rodriguez performed the biopsy of chronic lesion of the patient's left forehead. The lesion is approximately 2 x 3 cm in diameter and protruding approximately 1 cm. The pathology of the lesion is still pending at the time of dictation. Please note that this is a short summary of the patient's hospital stay. Please refer to further medical records for details. TIME SPENT: Approximately 35 minutes were spent on the patient's discharge. CC: Dr. Anival Barraza, [facility]. * [id number]/[facility] #: [id number] [facility] HEALTH SYSTEMSharee
[2016-09-08 10:26] VITALS: BP 161/69
== END 2016-09-08 11:09 | DRG 683 ==
LOC: ED 09:32 → MEDTELE 12:18
PROVIDERS: ADMIT Internal Medicine; ATTEND Internal Medicine
PROC: 0HB0XZX Excision of Scalp Skin, External Approach, Diagnostic (ICD-10-PCS; principal; 2016-09-05)
DX: N17.9 Acute kidney failure, unspecified (principal); S32.129A Unspecified Zone II fracture of sacrum, initial encounter for closed fracture; I24.8 Other forms of acute ischemic heart disease; F03.90 Unspecified dementia, unspecified severity, without behavioral disturbance, psychotic disturbance, mood disturbance, and anxiety; E86.0 Dehydration; S00.03XA Contusion of scalp, initial encounter; I25.2 Old myocardial infarction; E78.00 Pure hypercholesterolemia, unspecified; I10 Essential (primary) hypertension; Z87.891 Personal history of nicotine dependence; Z82.49 Family history of ischemic heart disease and other diseases of the circulatory system; M47.898 Other spondylosis, sacral and sacrococcygeal region; I25.10 Atherosclerotic heart disease of native coronary artery without angina pectoris; Z87.01 Personal history of pneumonia (recurrent); W19.XXXA Unspecified fall, initial encounter; Y92.9 Unspecified place or not applicable; Z79.82 Long term (current) use of aspirin; I45.10 Unspecified right bundle-branch block; R00.1 Bradycardia, unspecified
CPT/HCPCS: 36415; 70450; 71020; 72131; 72192; 80048; 80053; 80061; 81003; 81015; 82550; 83036; 83605; 83735; 83880; 84443; 84484; 85025; 85610; 87086; 88305; 88341; 88342; 93005; 93306; A9270-GY; J1644